=== PATIENT | female | born 1940 | race Caucasian/White ===

== ENCOUNTER 2020-12-01 23:52 | Emergency (ER) | payer BC, SELFPAY ==
--- NOTE | ~2020-12-01 | XR_ITS ---
EXAMINATION: XR chest 1V portable EXAM DATE: 12/02/2020 00:31 INDICATION: Palpitations, no other hx heart/lung disease. TECHNIQUE: Portable AP frontal chest x-ray was obtained. Comparison is made to prior examination from 11/11/2009. FINDINGS: The lungs are hyperinflated which can be seen with chronic obstructive pulmonary disease (a clinical diagnosis of functional impairment), but is not diagnostic of it. 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 Borderline heart size. No confluent consolidation, pneumothorax or pleural effusion suspecte d. IMPRESSION: 1. Hyperinflation. 2. No acute cardiopulmonary findings. Reviewed, dictated and finalized at location A.
--- NOTE | 2020-12-01 23:55 | ECG_ITS ---
Measurements Intervals [place] Rate: 86 P: PA: 0 QRS: -70 QRSD: 117 T: 71 QT: 358 QTc: 430 Interpretive Statements ATRIAL FIBRILLATION INCOMPLETE RIGHT BUNDLE BRANCH BLOCK LEFT ANTERIOR FASCICULAR BLOCK ABNORMAL ECG Electronically Signed On 12-02-2020 6:20:48 CDT by Gallito Heard D.O.
[2020-12-01 23:56] VITALS: BP 147/82; PULSE 67; RESP 20; TEMP 36.2; O2SAT 100
[2020-12-02] VITALS (20 sets, daily range): BP systolic 100–134; BP diastolic 63–91; PULSE 76–91; RESP 11–20; TEMP 36.7; O2SAT 97–100
--- NOTE | 2020-12-02 00:19 | ED.GENADULT ---
HPI - General Adult General Chief complaint: Arrhythmia/Palpitations Stated complaint: heart is racing Time Seen by Provider: 12/02/20 00:06 History of Present Illness HPI narrative: Patient 80-year-old female who presents the emergency department with chief complaint of palpitations. The patient reports that tonight at 10:30 PM she noticed that her heart started beating irregular at times it was beating fast and was beating hard. The patient reports that over the last several days she has noticed that she has had some intermittent fluttering in her chest but it has not been on a regular basis. Patient reports she has no prior history of atrial fibrillation but does have a history of SVT of which she had an ablation done by [facility] at [place]. Patient reports that she still is followed by cardiology at [place] for this. The patient states that she has felt a little bit of tightness in her chest but currently is not having any chest pain shortness of breath or feeling of syncope. Related Data Allergies Allergy/AdvReac Type Severity Reaction Status Date / Time No Known Allergies Allergy Verified 03/05/17 12:18 Review of Systems Review of Systems: Narrative: A 10 system review of systems was completed on the patient and is negative except for what is stated in the HPI. Nursing and ancillary documentation was reviewed. [facility] Social History Social History Gender identity (if verbalized by the patient): Female Comments Past medical history significant for SVT Surgical history ablation for SVT Social history the patient denies illicit drug use. Exam Narrative: Exam Narrative: GENERAL: Well-appearing, well-nourished, and in no acute distress. HEAD: Normocephalic, atraumatic. EYES: PERRLA and EOMI. ENT: Nares clear, no rhinorrhea or epistaxis. Mucous membranes moist. NECK: Supple. CHEST: Clear to auscultation. No respiratory distress. HEART: irregular rate and rhythm. No murmur heard. Normal peripheral pulses. ABDOMEN: Soft, nontender, nondistended, normal active bowel sounds. EXTREMITIES: Normal range of motion. No edema. SKIN: Warm, dry, no rash. NEURO: No focal deficits. Alert and oriented x3. PSYCH: Normal mood and affect. Course Course Emergency Course: EKG shows atrial fibrillation with a rate of [address] elevation or ST depression noted Vital Signs Vital signs: Vital Signs Temperature 36.2 C L 12/01/20 23:56 Pulse Rate 67 12/01/20 23:56 Respiratory Rate 20 12/01/20 23:56 Blood Pressure 147/82 H 12/01/20 23:56 Pulse Oximetry 100 12/01/20 23:56 Temperature 36.2 C L 12/01/20 23:56 Pulse Rate 83 12/02/20 02:12 Respiratory Rate 14 12/02/20 01:46 Blood Pressure 123/70 12/02/20 01:45 Pulse Oximetry 98 12/02/20 01:46 Medical Decision Making Vital Signs Vital Signs: Vital Signs Temperature 36.2 C L 12/01/20 23:56 Pulse Rate 67 12/01/20 23:56 Respiratory Rate 20 12/01/20 23:56 Blood Pressure 147/82 H 12/01/20 23:56 Pulse Oximetry 100 12/01/20 23:56 Temperature 36.2 C L 12/01/20 23:56 Pulse Rate 83 12/02/20 02:12 Respiratory Rate 14 12/02/20 01:46 Blood Pressure 123/70 12/02/20 01:45 Pulse Oximetry 98 12/02/20 01:46 Lab Data Result diagrams: 12/02/20 00:19 12/02/20 00:19 Labs: Lab Results 12/02/20 12/02/20 12/02/20 Range/Units 00:19 00:19 00:19 WBC 5.4 (4.5-10.0) K/mm3 RBC 4.21 (4.2-5.4) M/mm3 Hgb 13.2 (12.0-15.0) g/dL Hct 40.5 (37.0-47.0) % MCV 96.2 (80-100) fl MCH 31.4 (26-34) pg MCHC 32.6 (32-36) g/dl RDW 13.0 (11.5-14.5) % Plt Count 190 (150-375) k/mm3 MPV 10.3 (7.4-10.4) fl Immature Gran % (Auto) 0.2 (0-0.5) % Neut % (Auto) 49.2 (45.5-73.1) % Lymph % (Auto) 37.4 (18.3-44.2) % Citrus % (Auto) 10.1 H (2.6-8.5) % Eos % (Auto) 2.2 (0-4.4) % Baso % (Auto) 0.9 (0.2-1.2) % Lymph # (Auto) 2.00 (0.9-3
[2020-12-02 00:26] LABS: Basophils Absolute Auto 0.1 K/mm3 (0.0-0.1); Basophils Percent Auto 0.9 % (0.2-1.2); Eosinophils Absolute Auto 0.1 K/mm3 (0-0.3); Eosinophils Percent Auto 2.2 % (0-4.4); Hematocrit 40.5 % (37.0-47.0); Hemoglobin 13.2 g/dL (12.0-15.0); Immature Granulocyte Absolute 0.01 K/mm3 (0.00-0.031); Immature Granulocyte Percent A 0.2 % (0-0.5); Lymphocytes Percent Auto 37.4 % (18.3-44.2); Mean Corpuscular HGB Conc 32.6 g/dl (32-36); Mean Corpuscular Hemoglobin 31.4 pg (26-34); Mean Corpuscular Volume 96.2 fl (80-100); Mean Platelet Volume 10.3 fl (7.4-10.4); Monocytes Absolute Auto 0.5 K/mm3 (0.1-0.6); Monocytes Percent Auto 10.1 % (2.6-8.5); Neutrophils Absolute Auto 2.6 K/mm3 (1.3-6.7); Neutrophils Percent Auto 49.2 % (45.5-73.1); Platelet Count Result 190 k/mm3 (150-375); Red Blood Count 4.21 M/mm3 (4.2-5.4); White Blood Count 5.4 K/mm3 (4.5-10.0)
[2020-12-02 00:35] LABS: Alanine Aminotransferase 22 U/L (4-35); Albumin Level 4.5 g/dL (3.5-5.1); Alkaline Phosphatase 108 U/L (38-126); Anion Gap 11 mmol/L (8-16); Aspartate Amino Transferase 39 U/L (14-36); Bilirubin,Total 0.2 mg/dL (0.2-1.3); Blood Urea Nitrogen 25 mg/dL (7-17); Calcium 9.3 mg/dL (8.4-10.2); Carbon Dioxide 25 mmol/L (22-30); Chloride 101 mmol/L (98-107); Estimated CRCL calculation 32 ml/min; Estimated Glomerular Filt Rate 53; Glucose 85 mg/dL (65-105); Magnesium 2.2 mg/dL (1.6-2.3); Potassium 3.8 mmol/L (3.4-5.0); Sodium 137 mmol/L (137-145)
[2020-12-02 00:36] LABS: INR 0.9; Prothrombin Time 12.8 Seconds (11.1-14.7)
[2020-12-02 00:46] LABS: Add Urine Microscopic? YES; Appearance Urine Clear (Clear); Bilirubin Urine Negative (Negative); Blood Urine Negative (Negative); Color Urine Straw (Yellow); Glucose Urine UA Negative (Negative); Ketones Urine Trace mg/dL (Negative); Leukocyte Esterase Ur Negative LEU/UL (Negative); Mucus Urine Rare /lpf; Nitrate Urine Negative (Negative); Protein Urine Negative (Negative); RBC Urine 0-2 /hpf (0-2); Specific Grav Ur 1.006 (1.001-1.035); Urobilinogen Urine Negative mg/dL (<2.0); WBC Urine 0-3 /hpf
[2020-12-02 00:47] LABS: Troponin I < 0.012 ng/mL (0.000-0.034)
[2020-12-02] MEDS: APIXABAN 5 MG TABLET PO (02:12)
[2020-12-02] MEDS: METOPROLOL TARTRATE 12.5 MG TABLET PO (02:12)
== END 2020-12-02 02:35 | disposition home or self-care (01) ==
PROVIDERS: Emergency Provider Emergency Medicine
DX: I48.91 Unspecified atrial fibrillation (principal); I45.2 Bifascicular block
CPT/HCPCS: 36415; 71045; 80053; 81001; 83735; 84443; 84484; 85025; 85610; 85730; 93005; 99284; A9270

== ENCOUNTER 2023-12-07 15:09 | Emergency (ER) | payer MEDICARE, SELFPAY ==
[2023-12-07 15:20] VITALS: BP 94/71; PULSE 77; RESP 18; TEMP 37.1; O2SAT 97
[2023-12-07 15:22] VITALS: BP 94/71; PULSE 77; RESP 18; TEMP 37.1; O2SAT 97
--- NOTE | 2023-12-07 15:39 | ED.SKABFB ---
HPI - Skin/Abscess/Foreign Bdy General Chief complaint: Extremity Injury, Upper Stated complaint: Open Wound Time Seen by Provider: 12/07/23 15:29 Source: patient and RN notes reviewed Mode of arrival: ambulatory Limitations: no limitations History of Present Illness HPI narrative: Patient presents today complaining of a wound to her left ventura. 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 She replaced the flap and has been applying antibiotic ointment. She is on Eliquis and states she still has some slight oozing from time to time. She is up-to-date on her tetanus vaccine. Related Data Home Medications Medication Instructions Recorded Confirmed gabapentin 100 mg capsule 100 mg DIRECTED 12/07/23 12/07/23 mirabegron 25 mg tablet,extended 25 mg PO DIRECTED 12/07/23 12/07/23 release 24 hr (Myrbetriq) mirtazapine 45 mg tablet 45 mg DIRECTED 12/07/23 12/07/23 prednisolone acetate 1 % eye 1 drp DIRECTED 12/07/23 12/07/23 drops,suspension Allergies Allergy/AdvReac Type Severity Reaction Status Date / Time No Known Allergies Allergy Verified 03/05/17 12:18 Review of Systems Review of Systems: CONSTITUTIONAL: Denies body aches, fever, chills, or sweats. EYES: Denies visual changes, redness, or discharge. ENT: Denies rhinorrhea, congestion, sore throat, or otalgia. CARDIOVASCULAR: Denies chest pain, palpitations, or edema. RESPIRATORY: Denies cough or dyspnea. GASTROINTESTINAL: Denies abdominal pain, nausea, vomiting, or diarrhea. GENITOURINARY: Denies dysuria or hematuria. SKIN: Denies rash, itching. +wound to left ventura MUSCULOSKELETAL: Denies back pain, joint pain, or myalgia. NEUROLOGIC: Denies headache, numbness, tingling, or weakness. PSYCH: Denies depression or anxiety. PMFSH Social History Social History Gender identity (if verbalized by the patient): Female Comments At time of signature, I have reviewed and agree with nursing past medical, surgical, social and family history unless otherwise noted. Please see nursing chart for further information. There is no relevant family history pertinent to the presenting complaint Exam Narrative: GENERAL: Well-appearing, well-nourished, and in no acute distress. HEAD: Normocephalic, atraumatic. EYES: EOMI. No redness or drainage. Conjunctivae normal. ENT: Mucous membranes pink and moist. Nares clear. No rhinorrhea. TMs normal bilaterally. Throat normal. Uvula midline. NECK: Normal AROM. Supple. No lymphadenopathy. CHEST: No respiratory distress. Clear to auscultation. HEART: Regular rate and rhythm. No murmur appreciated. Normal peripheral pulses. ABDOMEN: Soft, nontender, nondistended, normal active bowel sounds. MUSCULOSKELETAL: No bony tenderness. EXTREMITIES: Normal range of motion. No edema. SKIN: Warm, dry, no rash. Capillary refill normal. Normal skin turgor.+ approximately 2 x 2 cm flap wound that is dark in color, surrounded by some slight erythema. No active drainage. No edema. NEURO: No focal deficits. Alert and oriented x3. Gait steady. PSYCH: Normal affect. No signs of depression or anxiety. Course Course Level of Care: Express Care Visit Vital Signs Vital signs: Vital Signs Temperature 98.7 F 12/07/23 15:20 Pulse Rate 77 12/07/23 15:20 Respiratory Rate 18 12/07/23 15:20 Blood Pressure 94/71 L 12/07/23 15:20 Pulse Oximetry 97 12/07/23 15:20 Oxygen Delivery Room Air 12/07/23 15:20 Temperature 98.7 F 12/07/23 15:22 Pulse Rate 77 12/07/23 15:22 Respiratory Rate 18 12/07/23 15:22 Blood Pressure 94/71 L 12/07/23 15:22 Pulse Oximetry 97 12/07/23 15:22 Oxygen Delivery Room Air 12/07/23 15:22 Reviewed MDM - Skin/Abscess/Foreign Bdy MDM Narrative Medical decision making narrative: The edges of patient's laceration are healing and dry. It has not fully formed a sc
== END 2023-12-07 15:53 | disposition home or self-care (01) ==
PROVIDERS: Emergency Provider Nurse Practitioner
DX: S81.802A Unspecified open wound, left lower leg, initial encounter (principal); W22.8XXA Striking against or struck by other objects, initial encounter; I48.91 Unspecified atrial fibrillation; Z94.7 Corneal transplant status; Z79.01 Long term (current) use of anticoagulants
CPT/HCPCS: 99203; G0463

== ENCOUNTER 2023-12-16 13:59 | Emergency (ER) | payer MEDICARE, SELFPAY ==
--- NOTE | 2023-12-16 14:03 | ED.SKABFB ---
HPI - Skin/Abscess/Foreign Bdy General Chief complaint: Wound/Laceration Stated complaint: WOUND ON L LEG Time Seen by Provider: 12/16/23 14:10 Source: patient and RN notes reviewed Mode of arrival: ambulatory Limitations: dementia History of Present Illness HPI narrative: 83-year-old female presents concern for skin tear on her left leg. Reports she has had the skin tear for about 2 weeks, she has completed a round of Keflex but the wound is still not completely healed. She reports that has a small amount of serosanguineous drainage daily. She has been putting mupirocin ointment on it and keeping it covered with a bandage. she reports previous redness has resolved. She is concerned that it is not healing MD complaint: other (skin tear) Related Data Home Medications Medication Instructions Recorded Confirmed gabapentin 100 mg capsule 100 mg DIRECTED 12/07/23 12/07/23 mirabegron 25 mg tablet,extended 25 mg PO DIRECTED 12/07/23 12/07/23 release 24 hr (Myrbetriq) mirtazapine 45 mg tablet 45 mg DIRECTED 12/07/23 12/07/23 prednisolone acetate 1 % eye 1 drp DIRECTED 12/07/23 12/07/23 drops,suspension Allergies Allergy/AdvReac Type Severity Reaction Status Date / Time No Known Allergies Allergy Verified 03/05/17 12:18 Review of Systems Review of Systems: CONSTITUTIONAL: Denies malaise, chills, sweats, or fever. SKIN: Reports slow healing skin wound on the left ventura Denies purulent drainage, vesicles, bullae, numbness, pain beyond proportion MUSCULOSKELETAL: Denies joint pain or myalgia. NEUROLOGIC: Denies headache. All systems reviewed & are unremarkable except as noted in HPI and below PMFSH Social History Social History Gender identity (if verbalized by the patient): Female Comments At time of signature, agree with nursing past medical, surgical, social and family history. There is no relevant family history pertinent to the presenting complaint Exam Narrative: GENERAL: Well-appearing, well-nourished, and in no acute distress. HEAD: Normocephalic, atraumatic. EYES: PERRLA, conjunctivae clear ENT: Mucous membranes moist. NECK: Supple. No lymphadenopathy CHEST: Clear to auscultation. No respiratory distress. HEART: Regular rate and rhythm. SKIN: Warm, dry. Approximately 2 cm circular well healing skin tear noted to the left anterior lower leg with no surrounding erythema, edema, induration, very small sliver of the skin wound still is open with a beefy pink tissue bed, serosanguineous drainage noted on the bandage. No vesicles, bullae, necrosis, ecchymosis, crepitus noted. NEURO: Alert and oriented x3. PSYCH: Normal mood and affect Course Course Emergency Course: Patient is aware of diagnosis, understands and agrees to treatment plan. Anticipatory guidance given. Patient agrees to follow-up as directed and is aware of reasons to seek care at the emergency department. Portions of this record may have been created with voice recognition software Level of Care: Express Care Visit Vital Signs Vital signs: Reviewed. MDM - Skin/Abscess/Foreign Bdy MDM Narrative Medical decision making narrative: I evaluated this in the [facility] care. History is obtained from patient who is an independent historian and physical exam was performed.? Available medical records were reviewed. ? Exam findings and relevant testing show no acute concerns or changes; patient is non-toxic appearing and is in no distress. No risk factors or findings concerning for epidural abscess, diskitis, vertebral osteomyelitis, cord compression, cauda equina, vertebral fracture or bone malignancy, AAA, or pyelonephritis. Patient instructed to consider further imaging and workup through their primary care physician as an outpatient if symptoms persist. Does not appear at this time to be erythema multiforme, bullous, SJS, TEN; no evidence at this time to suggest R
[2023-12-16 14:10] VITALS: BP 115/65; PULSE 74; RESP 16; TEMP 36.6; O2SAT 98
== END 2023-12-16 14:25 | disposition home or self-care (01) ==
PROVIDERS: Emergency Provider Nurse Practitioner
DX: S81.802A Unspecified open wound, left lower leg, initial encounter (principal); X58.XXXA Exposure to other specified factors, initial encounter; I48.91 Unspecified atrial fibrillation; Z94.7 Corneal transplant status
CPT/HCPCS: 99211; G0463